=== PATIENT | female | born 1990 | race Caucasian/White ===

== ENCOUNTER → 2022-05-31 | Outpatient (CLI) | payer OTHER, SELFPAY ==
[2022-06-08 22:46] LABS: HPV APTIMA, High Risk Negative (Negative)
== END | disposition home or self-care (01) ==
LOC: LABSPEC 13:01
PROVIDERS: PCP Internal Medicine; Referring Provider Registered Nurse; Visit Provider Registered Nurse
DX: Z12.4 Encounter for screening for malignant neoplasm of cervix (principal)
CPT/HCPCS: 87624; 88175; G0145

== ENCOUNTER 2022-06-19 19:13 | Emergency (ER) | payer OTHER, SELFPAY ==
[2022-06-19 19:14] VITALS: BP 117/77; PULSE 62; RESP 20; TEMP 35.8; BMI 25.2
[2022-06-19 19:16] VITALS: BP 117/77; PULSE 62; RESP 20; TEMP 35.8
--- NOTE | 2022-06-19 19:58 | CT_ITS ---
ACR Level 3 findings have been noted. An addendum which confirms receipt of the report will follow. INDICATION: Kidney Stone EXAMINATION: CT Abdomen And Pelvis W/O Contrast Injection TECHNIQUE: Helically acquired images were obtained of the abdomen and pelvis without the use of IV contrast. A radiation dose optimization technique was used for this scan. Oral contrast: None. COMPARISON: None FINDINGS: Evaluation of the solid organs and vascular structures is limited without intravenous contrast. Visualized lung bases: Unremarkable Liver: Unremarkable Gallbladder: Unremarkable Spleen: Unremarkable Pancreas: Unremarkable Adrenal Glands: Unremarkable Kidneys: Severe right hydroureteronephrosis with an obstructing 7 mm stone in the distal right ureter. There is bilateral medullary nephrocalcinosis Vasculature: Unremarkable GI Tract: Unremarkable Lymphadenopathy: None Peritoneum: No ascites. Bladder: Unremarkable Reproductive organs: Unremarkable Bones/Soft tissues: No suspicious osseous or soft tissue lesions CT/Abdomen/Pelvis without Cont IMPRESSION: Severe right hydroureteronephrosis with an obstructing 7 mm stone in the distal right ureter. Bilateral medullary nephrocalcinosis Electronically Signed: Rony Montoya MD at 21:52 EST ,
--- NOTE | 2022-06-19 19:58 | EX.ED.DYSGE1 ---
HPI History of Present Illness Chief Complaint: Flank Pain Detail of Chief Complaint: Right flank pain Informant: parent Onset/Context/Timing Onset: Today Current Severity: Moderate Maximum Severity: Moderate Narrative Narrative: Patient presents with rather abrupt onset of right flank pain this evening. She had nausea and vomiting secondary to the degree of pain. She tried to take ibuprofen but did have emesis following this. She does report some urinary frequency and only passing small amounts. No significant dysuria. No history of kidney stones. [facility] Medical History Migraines Home Medications hydrocodone-acetaminophen 5-325mg 5mg-325mg 1 tab PO Q6H PRN PRN Pain 3 days #10 TABLETS 06/19/22 [Rx Last Taken Unknown] ibuprofen 600 mg tablet 600 mg PO Q8H PRN PRN pain #20 TABLETS 06/19/22 [Rx Last Taken Unknown] ondansetron 4 mg disintegrating tablet 4 mg PO Q8H PRN PRN Nausea #10 tabs 06/19/22 [Rx Last Taken Unknown] tamsulosin 0.4 mg capsule (Flomax) 0.4 mg PO DAILY #7 caps 06/19/22 [Rx Last Taken Unknown] Allergy/AdvReac Type Severity Reaction Status Date / Time No Known Allergies Allergy Unverified 05/31/22 11:39 Social History adopted: No household members: family number of children: 4 current occupational status: employed pets and animals: Yes history of recent travel: Yes sexually active: Yes Smoking Status: Never smoker second hand exposure: No alcohol intake: current alcohol intake frequency: a few times a month substance use type: does not use what type of physical activity do you participate in: walking seatbelt use: always do you feel safe at home: No additional social history: SPOUSE, VIKI DOMINGUEZ ROS ROS ED Constitutional Constitutional ED: Denies chills or fever(s) Eyes Eyes: Denies change in vision or discharge from eye(s) ENT ENT ED: Denies discharge from eye(s), rhinorrhea or sore throat Cardiovascular Cardiovascular: Denies chest pain or palpitations Respiratory/Chest Respiratory/Chest: Denies cough or dyspnea Gastrointestinal Gastrointestinal: Reports abdominal pain, nausea and vomiting; Denies diarrhea Genitourinary Genitourinary ED: Reports urinary frequency; Denies difficulty urinating or dysuria Musculoskeletal Musculoskeletal: Reports back pain; Denies extremity pain Integumentary Denies Abrasions or rash Neurologic Neurologic: Denies headache(s) or weakness Psychiatric Psychiatric: Denies anxiety or depression Allergic/Immunologic Allergic/Immunologic ED: Denies lip swelling or urticaria EXAM Physical Exam Const Vital Signs: 06/19/22 19:14 06/19/22 19:16 06/19/22 19:44 Temperature 96.4 F L 96.4 F L Temperature Source Temporal Temporal Pulse Rate 62 62 Respiratory Rate 20 H 20 H Respiratory Pattern Normal Blood Pressure 117/77 117/77 Blood Pressure Mean 90 90 Positive well nourished and well developed General Appearance ED: well developed HEENT Reports normocephalic and head/scalp atraumatic Eyes PERRL and EOMs intact bilaterally Neck supple Chest Wall inspection of chest normal and palpation of chest normal Resp normal respiratory effort and clear to auscultation bilaterally Cardio regular rate and regular rhythm GI non-tender Auscultation: hypoactive bowel sounds Palpation: soft Back/Spine General Back: CVA tenderness right Extremity normal to inspection Neuro oriented x3 and no sensory deficits noted Sensorium / Orientation: alert Motor Exam: strength 5/5 throughout Psych mental status grossly normal Skin no rashes or lesions noted MDM MDM MDM Narrative Medical decision making narrative: Patient given Toradol, morphine, Zofran, IV fluids. Lab work obtained to evaluate for leukocytosis, electrolyte derangement, renal function. test obtained. Urinalysis obtained to evaluate for infection. CT flank obtained given concern for kidney stone. History & Record Review Discussion w/independent historian: Patient Lab Data Attestation: I reviewed the patient's lab results. Labs: Laboratory Results - last 24 hr 06/19/22 06/19/22 06/19/22 19:52 19:52 19:52 WBC 13.0 H RBC 4.44 Hgb 12.8 Hct 38.1 MCV 85.8 MCH 28.8 MCHC 33.6 RDW Std Deviation 39.3 RDW Coeff of Herbie 12.6 Plt Count 270 MPV 10.1 Immature Gran % (Auto) 0.500 Neut % (Auto) 79.0 H Lymph % (Auto) 13.9 L Archuleta % (Auto) 5.1 Eos % (Auto) 1.0 Baso % (Auto) 0.5 Absolute Neuts (auto) 10.3 H Absolute Lymphs (auto) 1.80 Nucleated RBC % 0 Sodium 136 Potassium 3.8 Chloride 103 Carbon Dioxide 25.0 Anion Gap 8 BUN 14 Creatinine 0.81 Estim Creat Clear Calc 98.76 Est GFR (MDRD) Af Amer 106 Est GFR (MDRD) Non-Af 88 BUN/Creatinine Ratio 17.3 Glucose 115 H Calcium 9.1 Serum , Qual NEGATIVE Urine Color Urine Clarity Urine pH Ur Specific Franklin Urine Protein Urine Glucose (UA) Urine Ketones Urine Occult Blood Urine Nitrite Urine Bilirubin Urine Urobilinogen Ur Leukocyte Esterase Urine RBC Urine WBC Ur Squamous Epith Cells Urine Bacteria Urine Mucus 06/19/22 19:52 WBC RBC Hgb Hct MCV MCH MCHC RDW Std Deviation RDW Coeff of Ehrbie Plt Count MPV Immature Gran % (Auto) Neut % (Auto) Lymph % (Auto) Archuleta % (Auto) Eos % (Auto) Baso % (Auto) Absolute Neuts (auto) Absolute Lymphs (auto) Nucleated RBC % Sodium Potassium Chloride Carbon Dioxide Anion Gap BUN Creatinine Estim Creat Clear Calc Est GFR (MDRD) Af Amer Est GFR (MDRD) Non-Af BUN/Creatinine Ratio Glucose Calcium Serum , Qual Urine Color Yellow Urine Clarity Clear Urine pH 6.5 Ur Specific Franklin 1.020 Urine Protein 30 H Urine Glucose (UA) Normal Urine Ketones 5 H Urine Occult Blood Negative Urine Nitrite Negative Urine Bilirubin Negative Urine Urobilinogen Normal Ur Leukocyte Esterase Negative Urine RBC 0 SEEN Urine WBC 0-5 SEEN Ur Squamous Epith Cells 0-5 SEEN Urine Bacteria 0 SEEN Urine Mucus 0 SEEN Radiography Diagnostic Testing: Clinical Impression(s) from Imaging Studies Abdomen/Pelvis CT 06/19/22 19:58 IMPRESSION: Severe right hydroureteronephrosis with an obstructing 7 mm stone in the distal right ureter. Bilateral medullary nephrocalcinosis Electronically Signed: Rony Montoya MD at 21:52 EST , Differential Diagnosis Abdominal Pain: Appendicitis Reason(s) appendicitis less likely: Positive for clinical exam does not supportclinical exam does not support and UTI Reason(s) UTI less likely: no evidence of infection on urinalysis Treatment and Re-Evaluation :: Patient ultimately required 2 doses of morphine for pain control. On repeat evaluation pain is well controlled. Test results discussed with her. Lab work is unremarkable with normal renal function. Urinalysis reveals no sign of infection. CT flank reveals a large 7 mm stone in the distal right ureter with hydronephrosis. Given the patient's pain is well controlled with normal renal function I will discharge her with analgesics. She is given urology information for follow-up. Strict return instructions were given. Patient is comfortable with the plan. Discharge Plan Triage Chief Complaint: Flank Pain ED Provider: Geraldine Chaney Dx/Rx/DC Orders Clinical Impression: Ureterolithiasis Instructions: ED Kidney Stone w/ Colic Prescriptions: New hydrocodone-acetaminophen 5-325 mg tablet 1 tab PO Q6H PRN PRN (Reason: Pain) 3 Days Qty: 10 0RF ibuprofen 600 mg tablet 600 mg PO Q8H PRN PRN (Reason: pain) Qty: 20 0RF ondansetron 4 mg tablet,disintegrating 4 mg PO Q8H PRN PRN (Reason: Nausea) Qty: 10 0RF tamsulosin [Flomax] 0.4 mg capsule 0.4 mg PO DAILY Qty: 7 0RF Primary Care Provider: Cally Pappas Referrals: Cally Pappas MD [Primary Care Provider] - Jessica Wood MD [Med Staff - Active Staff] - As soon as possible Sae Crowell MD [Med Staff - Active Staff] - As soon as possible Activity Restrictions/Additional Instructions: You can follow-up with either Dr. Wood or Dr. Crowell. Disposition Disposition: Home, Self Care
[2022-06-19] MEDS: Ketorolac 30 MG/ML Syringe IV (20:07)
[2022-06-19] MEDS: Ondansetron 4 MG/2 ML Vial IV (20:08)
[2022-06-19] MEDS: Morphine 4 MG/ML Syringe IV ×2 (20:08→21:49)
[2022-06-19] MEDS: 0.9% Normal Saline 1,000 ML 250 ML IV (20:10)
[2022-06-19 20:22] LABS: Bacteria 0 SEEN /hpf (None Seen); Mucous, Urine 0 SEEN /hpf (<or=2+); Red Blood Cells-Urine 0 SEEN /hpf (0-5)
[2022-06-19 20:23] LABS: Absolute Neutrophil Count 10.3 X10^3/uL (2.0-7.7); Basophil# 0.06 X10^3/uL; Basophil% 0.5 % (0-1); Color, Urine Yellow (Yellow); Eosinophil# 0.13 X10^3/uL; Glucose, Dipstick Normal (Normal); Hematocrit 38.1 % (37-47); Hemoglobin 12.8 g/dL (12.0-15.0); Ketone-Dipstick 5 mg/dl (Negative); Leukocyte Esterase-Dipstick Negative /ul (Negative); Lymphocyte % 13.9 % (19-41); Mean Corp Hgb Conc 33.6 g/dL (32-36); Mean Corpuscular Hgb 28.8 pg (27.0-32.0); Mean Corpuscular Volume 85.8 fL (81-99); Mean Platelet Vol. 10.1 fl (6.2-12.0); Monocyte# 0.66 X10^3/uL; Monocyte% 5.1 % (0-10); NRBC Flagged by Analyzer 0 % (0-5); Neutrophil # 10.25 X10^3/uL (2.7-7.7); Nitrite-Dipstick Negative (Negative); Occult Blood-Urine Negative /ul (Negative); Platelet Count 270 K/mm3 (150-450); Protein-Dipstick 30 mg/dl (Negative); RBC Distribution Width CV 12.6 % (11.6-14.6); RBC Distribution Width SD 39.3 fl (35.1-43.9); Red Blood Count 4.44 M/mm3 (4.2-5.4); Urine Bilirubin Dipstick Negative (Negative); Urine Clarity Clear (Clear); Urine Urobilinogen Normal (Normal); Urine pH 6.5 (5.0 - 8.0)
[2022-06-19 20:30] LABS: Squamous Epithelial Cells - UA 0-5 SEEN /hpf (5-10); White Blood Cells 0-5 SEEN /hpf (0-5)
[2022-06-19 20:33] LABS: Internal QC Validated? YES +Cl - CLEAR BKGD; Pregnancy, Serum, hCG Quali. NEGATIVE Negative
[2022-06-19 20:38] LABS: Anion Gap 8 (5-15); BUN 14 mg/dL (7-18); BUN/Creat Ratio 17.3 RATIO (10-20); Calcium,Total 9.1 mg/dL (8.5-10.1); Chloride 103 mmol/L (98-107); Creatinine, Serum 0.81 mg/dL (0.55-1.02); EST Glomerular Filtration Rate 88 mL/min (>60); Est Glom Filt Rate - Afr Amer 106 mL/min (>60); Estimated Creatinine Clearance 98.76 ml/min; Glucose 115 mg/dL (74-106); Potassium 3.8 mmol/L (3.5-5.1); Sodium Level 136 mmol/L (136-145)
[2022-06-19 22:37] VITALS: BP 110/70; PULSE 60; RESP 16; O2SAT 98; O2SAT 99
== END 2022-06-19 23:15 | disposition home or self-care (01) ==
PROVIDERS: Emergency Provider Emergency Medicine; PCP Internal Medicine; Visit Provider Emergency Medicine
DX: N13.2 Hydronephrosis with renal and ureteral calculous obstruction (principal); R35.0 Frequency of micturition; R11.2 Nausea with vomiting, unspecified
CPT/HCPCS: 74176; 80048; 81001; 84703; 85025; 96361; 96374; 96375; 96376; 99284; J7030; J2405

== ENCOUNTER 2022-06-29 07:18 | Day surgery (SDC) | payer OTHER, SELFPAY ==
[2022-06-29 07:51] LABS: Internal QC Validated? YES +Cl - CLEAR BKGD; Pregnancy, Urine Negative Negative
--- NOTE | 2022-06-29 08:00 | PCM.OPRPT ---
Report of Operation Date of Procedure: 06/29/22 Pre-Operative Diagnosis: Right distal ureteral calculus Post-Operative Diagnosis: Same, passed Surgery/Procedure Performed:: Cystoscopy, right retrograde pyelogram, right ureteroscopy Surgeon: Jessica Wood Type of Anesthesia: General Description of Procedure: The patient is a 32-year-old female presented to the office with a large right distal ureteral calculus. After discussing the risk benefits and alternatives, she agreed to proceed with surgical intervention. Informed consent was obtained. The patient was taken to the operating room and placed on the operating room table. Anesthesia monitored the head, neck, airway, IV access and vital signs throughout the case. Once anesthesia was appropriately administered, she was positioned on the lithotripsy table. The stone was not able to be identified with the lithotripter C arm. The patient was then positioned into dorsal lithotomy and was prepped and draped in usual sterile fashion. The cystoscope was inserted through the urethra under direct visualization into the urinary bladder. There were no abnormalities of the bladder mucosa identified. There was no foreign body within the urinary bladder. The right ureteral orifice was gently intubated with a 8 Cameroonian cone-tip catheter and contrast was injected in retrograde fashion under fluoroscopic visualization. This revealed no filling defect but significant hydroureteronephrosis down to the distal ureter. The decision was made to proceed with ureteroscopy. An 0.035 Glidewire was then used to gently cannulate the right ureter and was visualized within the renal pelvis on fluoroscopy. The flexible ureteroscope was inserted over the wire and advanced all the way without difficulty to the ureteropelvic junction. No stones, foreign body, tumor or other abnormality was identified. At this time the ureteroscope and the Glidewire were removed. The patient was then awakened and taken to the recovery room in good condition. There were no complications during this procedure. Grafts/Implants Used: none Complications none Admit VTE Documentation VTE Present on Admission: Yes VTE Mechan Device Prophylaxis: SCD's VTE Pharm Prophylaxis ordered?: No Reason prophylaxis not ordered:: Treatment Not Indicated
[2022-06-29 08:06] VITALS: BP 106/78; PULSE 69; RESP 16; TEMP 36.6; O2SAT 100; BMI 25.8
--- NOTE | 2022-06-29 08:07 | DCINST_ITS ---
Discharge Instructions Diet Discharge Diet: No restrictions Activity Discharge Activity: Return to Normal Activity May resume sexual activity in: No Restrictions Dressing / Incision Call your doctor if you observe: Fever of 101 or Higher, Inability to urinate and Inability to have a bowel movement Follow Up Care Please Follow Up With: Jessica Wood MD When: in 2-3 weeks with KUB for possible stent removal Test Results: Test results from this visit will be discussed in further detail at your follow- up appointment, if applicable. Discharge Plan Admission Attending Provider: Jessica Wood Primary Care Provider: Cally Pappas Discharge Orders/Prescriptions Prescriptions: New oxycodone-acetaminophen [Percocet] 5-325 mg tablet 1 tab PO Q8H PRN (Reason: pain) 3 Days Qty: 10 0RF phenazopyridine [Pyridium] 200 mg tablet 200 mg PO TID PRN PRN (Reason: Bladder Spasms) 7 Days Qty: 30 0RF cephalexin [cephalexin] 500 mg capsule 500 mg PO Q12 3 Days Qty: 6 0RF Continued ibuprofen 600 mg tablet 600 mg PO Q8H PRN PRN (Reason: pain) Qty: 20 0RF tamsulosin [Flomax] 0.4 mg capsule 0.4 mg PO DAILY Qty: 7 0RF oxycodone-acetaminophen 5-325 mg tablet 1 tab PO PRN PRN (Reason: Pain) Referrals / Follow Up: Cally Pappas MD [Primary Care Provider] - Disposition Disposition (needs filled in before D/C Order can be placed): Home, Self Care
[2022-06-29] MEDS: Lactated Ringers 1,000 ML 15 ML IV (08:12)
[2022-06-29] MEDS: Cefazolin 2 GM in 0.9% Normal Saline 100 ML IV (08:50)
[2022-06-29 09:27] VITALS: BP 102/73; BP 106/78; PULSE 66; RESP 18; TEMP 36.3; O2SAT 100
[2022-06-29 09:30] VITALS: BP 106/78; BP 86/68; PULSE 66; RESP 16; O2SAT 100
[2022-06-29 09:45] VITALS: BP 106/70; BP 106/78; PULSE 61; RESP 16; O2SAT 100
[2022-06-29 09:56] VITALS: BP 106/78; BP 97/63; PULSE 61; RESP 16; TEMP 36.1; O2SAT 100
[2022-06-29 10:28] VITALS: BP 106/78
== END 2022-06-29 10:46 | disposition home or self-care (01) ==
LOC: SDC 07:18 → AC 07:20
PROVIDERS: Anesthesiology; PCP Internal Medicine; Referring Provider Urology; Visit Provider Urology
PROC: (CPT 50590; principal; 2022-06-29 08:40)
DX: N13.30 Unspecified hydronephrosis (principal)
CPT/HCPCS: 52005; 00910; 81025; J7120; J2405

== ENCOUNTER → 2025-01-12 | Outpatient (CLI) | payer OTHER, SELFPAY ==
--- NOTE | 2025-01-12 07:50 | US_ITS ---
PROCEDURE: PELVIC W/ TRANSVAGINAL 01/12/2025 REASON FOR EXAM: INFERTILITY TECHNIQUE: Procedure Code: [id number] Modality: US Procedure: PELVIC W/ TRANSVAGINAL COMPARISON: None FINDINGS: Study was performed both transabdominally and transvaginally Uterus: Anteverted measuring 10.1 x 5.4 x 4.5 cm. No demonstrated fibroid. Endometrium: Hyperechoic measuring 5 mm, there is some fluid within the endometrium likely hemorrhage. Right ovary: 3.5 x 2.3 x 1.8 cm, no suspicious lesion normal color Doppler flow noted Left ovary: 3.5 x 2.3 x 1.7 cm, no suspicious lesion, normal color Doppler flow noted Other: Bladder distends normally with estimated capacity of 468 mL, no fluid in the cul de sac US/Pelvic w/ Transvaginal IMPRESSION: No suspicious sonographic findings, there is some echogenic debris and fluid wi thin the endometrium likely related to patient's cycle No suspicious adnexal mass or free fluid Reading Location: [id number]
== END | disposition home or self-care (01) ==
LOC: OPUS 07:49
PROVIDERS: Referring Provider Nurse Practitioner Family; Visit Provider Nurse Practitioner Family
DX: Z31.69 Encounter for other general counseling and advice on procreation (principal)
CPT/HCPCS: 76830; 76856

== ENCOUNTER → 2025-02-06 | Outpatient (CLI) | payer OTHER, SELFPAY ==
[2025-02-06 13:15] LABS: hCG Titer Quant., Serum 4 mIU/mL (<9 non-preg)
== END | disposition home or self-care (01) ==
PROVIDERS: Obstetrics & Gynecology; Visit Provider Obstetrics & Gynecology
DX: N91.2 Amenorrhea, unspecified (principal)
CPT/HCPCS: 36415; 84702

== ENCOUNTER → 2025-03-09 | Outpatient (CLI) | payer OTHER, SELFPAY | END | disposition home or self-care (01) | PROVIDERS: Visit Provider Nurse Practitioner Women's Health | DX: Z31.69 Encounter for other general counseling and advice on procreation (principal) | CPT/HCPCS: 36415 ==

== ENCOUNTER → 2025-03-26 | Outpatient (CLI) | payer OTHER, SELFPAY ==
[2025-03-27 08:09] LABS: PROGESTERONE 4.7 ng/mL (.)
== END | disposition home or self-care (01) ==
PROVIDERS: Referring Provider Nurse Practitioner Family; Visit Provider Nurse Practitioner Family
DX: Z31.69 Encounter for other general counseling and advice on procreation (principal)
CPT/HCPCS: 36415; 84144